=== PATIENT | male | born 1960 | race Caucasian/White ===

== ENCOUNTER 2017-11-23 22:42 | Emergency (ER) | payer SELFPAY ==
[2017-11-23 23:12] VITALS: TEMP 98.5
[2017-11-23] MEDS ORDERED: LEVALBUTEROL NEBS 1.25 MG/3 ML VIAL NEB ONE (23:19)
--- NOTE | 2017-11-23 23:28 | ED.PDOC ---
History of Present Illness - General Chief Complaint: Blood Pressure Problem Stated Complaint: irregular heartbeat Time Seen by Provider: 11/23/17 23:19 Source: patient, family Exam Limitations: no limitations - History of Present Illness Initial Comments: patient comes in today with irregular heartbeat today. says that over the past couple of weeks he's had several episodes. Normally they only last for several minutes and go away on their own. Today they have noticed that his heart rate would slow down and then speed up and it was feeling like it would skips a beat. He's had one episode of intermittent chest pain in the substernal area that resolved on its own earlier this morning. Only lasted for a couple of seconds and was not associated with nausea or vomiting. He does admit on questioning these had some shortness of breath last couple of days and he knows that he does have COPD although it has not been treated. He denies any fever, chills, cough or cold symptoms. 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 He has no cardiac history and does not take any medications. He has been under a lot of stress of late with family members moving back home and change of job. Patient currently has no chest pain, nausea, or vomiting. He states the episodes have gotten better since arrival. Past medical history 1. COPD Past surgical history 1. Right knee replacement 2. Appendectomy status post ruptured appendicitis 3. Partial colon resection secondary to severe diverticular disease Social history Patient is and does smoke with a greater than a [id number] history. 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 Timing/Duration: 7-24 hours Severity: mild Location: other Activities at Onset: none Prior Chest Pain/Cardiac Workup: no prior chest pain, no prior cardiac workup Improving Factors: nothing Worsening Factors: nothing Nitro Today/Relief: no nitro taken today Aspirin Treatment Today: no aspirin today Associated Symptoms: shortness of breath Allergies/Adverse Reactions: Allergies Ketorolac Tromethamine [From Toradol] Allergy (Verified 09/05/14 08:51) Home Medications: Ambulatory Orders Famotidine-Calcium Carbonate-M [Pepcid Complete 10-800-165 mg] 1 chw PO PRN Ibuprofen [Advil] 200 mg PO PRN #0 09/08/14 Rivaroxaban [Xarelto] 10 mg PO DAILY #10 tab 09/08/14 Albuterol Inhaler [Ventolin Hfa Inhaler] 1 puff INH BID 30 Days #1 inh 11/24/17 Azithromycin Tab [Zithromax] 250 mg PO DAILY 4 Days #4 tab 11/24/17 Ipratropium [place] Hfa [Atrovent Hfa] 17 mcg IN BID 30 Days #1 aer 11/24/17 Review of Systems - Review of Systems Constitutional: Denies: no symptoms reported, chills, fever EENTM: Denies: eye pain, ear pain, nose pain, throat pain Respiratory: States: cough, short of breath, wheezing Cardiology: States: palpitations. Denies: chest pain, edema, syncope Gastrointestinal/Abdominal: Denies: abdominal pain, diarrhea, nausea, vomiting Genitourinary: Denies: no symptoms reported Musculoskeletal: Denies: no symptoms reported Skin: Denies: no symptoms reported Neurological: Denies: no symptoms reported Past Medical History (General) - Patient Medical History Hx Seizures: No Hx Stroke: No Hx Dementia: No Hx Asthma: No Hx of COPD: Yes Hx Cardiac Disorders: No Hx Congestive Heart Failure: No Hx Pacemaker: No Hx Hypertension: Yes Hx Thyroid Disease: No Hx Diabetes: No Hx Gastroesophageal Reflux: No Hx Renal Disease: No Hx Cancer: No Hx of HIV: No Hx Hepatitis C: No Hx MRSA: No Surgical History: appendectomy - Social History Hx Tobacco Use: Yes Hx Alcohol Use: No Hx Substance Use: No Hx Substance Use Treatment: Yes - [facility] Hx Depression: No Hx Physical Abuse: No Hx Emotional Abuse: No Family Medical History - Family History Father Living Status: Hx Family Cancer: Yes Hx Family;Other: Father from oral cancer/sepsis Physical Exam - Physical Exam General Appearance: Alert, No apparent distress Eyes, Ears, Nose, Throat Exam: PERRL/EOMI, normal ENT inspection, TMs normal, pharynx normal Neck: non-tender, full range of motion, supple, normal inspection Respiratory: chest non-tender, wheezing - in all hurtado with no crackles no rubs Cardiovascular/Chest: regular rate, rhythm, no edema, no gallop, no JVD, no murmur Peripheral Pulses: radial,right: 2+ Gastrointestinal/Abdominal: normal bowel sounds, non tender, soft, no organomegaly Neurologic: alert, oriented x 3 Progress - Progress Progress: 11/24/17 00:34 11/23/17 23:30 EKG STAT Laboratory Results WBC 11.1 K/mm3 (4.8-10.8) H 11/23/17 23:30 RBC 5.07 M/mm3 (4.70-6.10) 11/23/17 23:30 Hgb 16.0 gm/dL (14.0-18.0) 11/23/17 23:30 Hct 46.6 % (42.0-52.0) 11/23/17 23:30 MCV 91.9 fl (80.0-94.0) 11/23/17 23:30 MCH 31.5 pg (27.0-31.0) H 11/23/17 23:30 MCHC 34.3 g/dL (33.0-37.0) 11/23/17 23:30 RDW 13.1 % (11.5-14.5) 11/23/17 23:30 Plt Count 162 PK/mm3 (130-400) 11/23/17 23:30 MPV 7.8 fl (7.40-10.4) 11/23/17 23:30 Absolute Neuts (auto) 6.30 K/uL (1.8-6.8) 11/23/17 23:30 Absolute Lymphs (auto) 3.50 K/uL (1.0-3.4) H 11/23/17 23:30 Absolute Monos (auto) 0.80 K/uL (0.2-0.8) 11/23/17 23:30 Absolute Eos (auto) 0.30 K/uL (0.0-0.4) 11/23/17 23:30 Absolute Basos (auto) 0.10 K/uL (0.0-0.1) 11/23/17 23:30 Neutrophils % 57.1 % (42.0-78.0) 11/23/17 23:30 Lymphocytes % 31.7 % (20.0-50.0) 11/23/17 23:30 Monocytes % 7.4 % (2.0-9.0) 11/23/17 23:30 Eosinophils % 2.7 % (1.0-5.0) 11/23/17 23:30 Basophils % 1.1 % (0.0-2.0) 11/23/17 23:30 PT 11.7 SECONDS (9.4-12.5) 11/23/17 23:30 INR 1.010 11/23/17 23:30 PTT (SP) 33.5 SECONDS (25.1-36.5) 11/23/17 23:30 Sodium 140 mmol/L (135-145) 11/23/17 23:30 Potassium 3.5 mmol/L (3.6-5.0) L 11/23/17 23:30 Chloride 105 mmol/L (101-111) 11/23/17:30 Carbon Dioxide 28 mmol/L (21-31) 11/23/17 23:30 Anion Gap 10.5 (12-18) L 11/23/17 23:30 BUN 17 mg/dL (7-18) 11/23/17 23:30 Creatinine 0.88 mg/dL (0.6-1.3) 11/23/17 23:30 BUN/Creatinine Ratio 19.3 (10-20) 11/23/17 23:30 Random Glucose 243 mg/dL (70-105) H 11/23/17 23:30 Serum Osmolality 289.0 mOsm/L (275-295) 11/23/17 23:30 Calcium 9.1 mg/dL (8.4-10.2) 11/23/17 23:30 Magnesium 1.9 mg/dL (1.8-2.5) 11/23/17 23:30 Creatine Kinase 124 IU/L (38-174) 11/23/17 23:30 CK-MB (CK-2) 2.1 ng/mL (0.0-4.4) 11/23/17 23:30 CK-MB (CK-2) % Not Reportable 11/23/17:30 Troponin I 0.03 ng/mL (0.01-0.05) 11/23/17 23:30 TSH 2.50 uIU/mL (0.34-5.60) 11/23/17 23:30 11/24/17 00:44 Patient felt much better after breathing treatment and PVCs decreased. Discussed PVCs are most likely secondary to pulmonary problems such as COPD exacerbation and bronchitis vs early pneumonia. Patient's lungs are cleared after breathing treatment. Discussed smoking cessation and will prescribe atrovent and albuterol HFA. Patient to follow up with PCP in 3-4 days to recheck. Return to ER for increased palpitations, shortness of breath, wheezing not relieved with treatments. Stop smoking. - EKG/XRAY/CT EKG: Sinus Comments: tele shows PVCs XRAY: chest Xray Comments: right basilar opacities atelectasis versus pneumonia Departure - Departure Clinical Impression: COPD (chronic obstructive pulmonary disease) with acute bronchitis, PVC ( premature ventricular contraction) Disposition: Discharge to Home or Self Care Condition: Good Departure Forms: ED Discharge - Pt. Copy, Patient Portal Self Enrollment Diet: regular diet Referrals: JOSE WILLSON [Primary Care Provider] - 1-2 Weeks Home Medications: Ambulatory Orders Famotidine-Calcium Carbonate-M [Pepcid Complete 10-800-165 mg] 1 chw PO PRN Ibuprofen [Advil] 200 mg PO PRN #0 09/08/14 Rivaroxaban [Xarelto] 10 mg PO DAILY #10 tab 09/08/14 Albuterol Inhaler [Ventolin Hfa Inhaler] 1 puff INH BID 30 Days #1 inh 11/24/17 Azithromycin Tab [Zithromax] 250 mg PO DAILY 4 Days #4 tab 11/24/17 Ipratropium [place] Hfa [Atrovent Hfa] 17 mcg IN BID 30 Days #1 aer 11/24/17 Additional Instructions: Discussed smoking cessation and will prescribe atrovent and albuterol HFA. Patient to follow up with PCP in 3-4 days to recheck. Return to ER for increased palpitations, shortness of breath, wheezing not relieved with treatments. Stop smoking.
--- NOTE | 2017-11-23 23:30 | RAD ---
EXAM: Single view chest. INDICATION: Palpitations. COMPARISON: Chest x-ray: None. FINDINGS: Cardiac silhouette: At the upper limit of normal in size Abby: Unremarkable. Lobar consolidation: None. Pleural effusion: None. Pneumothorax: None. Other: There are right basilar interstitial opacities. Bones: Unremarkable. Other: None. IMPRESSION: Right basilar interstitial opacities, which may represent atelectasis or pneumonia. Electronically signed by: Cleveland Gaxiola MD 11/23/2017 11:29 PM CDT Workstation: [id number]
[2017-11-24] MEDS ORDERED: AZITHROMYCIN 250 MG TAB PO ONE (00:37)
[2017-11-24 00:42] VITALS: BP 140/74
[2017-11-24 00:45] VITALS: O2SAT 96
== END 2017-11-24 00:52 | disposition home or self-care (01) ==
LOC: ER 22:42
DX: I49.3 Ventricular premature depolarization (principal); J44.9 Chronic obstructive pulmonary disease, unspecified; J20.9 Acute bronchitis, unspecified; I10 Essential (primary) hypertension; Z96.651 Presence of right artificial knee joint; F17.200 Nicotine dependence, unspecified, uncomplicated
CPT/HCPCS: 36415; 71045; 80048; 82550; 82553; 84443; 84484; 85025; 85610; 85730; 93005; 94640; J7614; Q0144